=== PATIENT | male | born 1990 | race Hispanic/Latino ===

== ENCOUNTER 2016-07-06 17:17 | Emergency (ER) | payer SELFPAY ==
[2016-07-06 17:26] VITALS: BP 112/70
== END 2016-07-06 20:05 | disposition left against medical advice (07) ==
LOC: ED 17:17
DX: R05 Cough (principal); R09.81 Nasal congestion; R07.9 Chest pain, unspecified; Z53.21 Procedure and treatment not carried out due to patient leaving prior to being seen by health care provider